=== PATIENT | male | born 1995 | race Hispanic/Latino ===

== ENCOUNTER 2019-01-31 09:56 | Emergency (ER) | payer BC, OTHER ==
[2019-01-31] MEDS ORDERED: NA CHLORIDE 0.9% 1,000 ML ONE (10:18)
[2019-01-31] MEDS ORDERED: ONDANSETRON 4 MG/2 ML VIAL ONE (10:18)
[2019-01-31] MEDS ORDERED: FENTANYL CITR 100 MCG/2 ML ONE (10:18)
[2019-01-31] MEDS ORDERED: PROMETHAZINE 25 MG/ML VIAL ONE (10:45)
[2019-01-31 10:53] LABS: Absolute Lymphocytes (CBC) 3.6 K/uL (0.7-4.9); Basophils % 0.4 % (0-1.3); Hematocrit 42.9 % (39.6-49.0); Lymphocytes % 28.8 % (15.3-44.8); MPV 8.2 fL (7.6-11.3); RBC Red Blood Cell Count 4.71 M/uL (4.33-5.43)
--- NOTE | 2019-01-31 10:57 | RAD REPORT ---
EXAM DESCRIPTION: CT - Stone Protocol - 01/31/2019 10:28 am CLINICAL HISTORY: Flank pain. FLANK PAIN COMPARISON: No comparisons TECHNIQUE: Axial images were obtained without oral or IV contrast. Lack of contrast limits solid org an and vascular assessment. The [id number] spans the entirety of the system partially obscuring uppermost abdomen and lung bases. Coronal reformatted images were obtained and reviewed. All CT scans are performed using dose optimization technique as appropriate and may include automated exposure control or mA/KV adjustment according to patient size. FINDINGS: The lower lung mcmillan are clear. Imaged portions of the liver and spleen show no suspicious findings on non-contrast imaging. The panc reas and adrenal glands are normal. No pathologic lymphadenopathy in the abdomen or pelvis. There is mild right-sided hydronephrosis and hydroureter. No radiopaque calculus seen. Punctate calcu nelida is seen inferior calyx left kidney. No bowel obstruction, free air, free fluid or abscess. Normal appendix noted. No significant bony abnormality. IMPRESSION: Mild right hydronephrosis and hydroureter is seen without a radiopaque calculus noted. T his could indicate recent stone passage or due to a non-radiopaque calculus.
[2019-01-31 11:04] LABS: Albumin 3.8 g/dL (3.4-5.0); Bilirubin Direct 0.1 mg/dL (0-0.2); Bilirubin Total 0.4 mg/dL (0.2-1.0); Potassium 3.7 mmol/L (3.5-5.1); Protein, Total 7.5 g/dL (6.4-8.2)
--- NOTE | 2019-01-31 11:19 | ER ---
Nurse's Notes [facility] Name: Jasper Novak Age: 23 yrs Sex: Male : 1995 Arrival Date: 01/31/2019 Time: 09:58 Bed 20 Private MD: Jose De Jesus Roach T Diagnosis: Unspecified hydronephrosis;Right Flank Pain Presentation: 01/31 10:00 Presenting complaint: Patient states: SUDDEN ONSET R FLANK PAIN WITH NAUSEA AND bp VOMITING. Transition of care: patient was not received from another setting of care. Onset of symptoms was January 31, 2019. Risk Assessment: Do you want to hurt yourself or someone else? Patient reports no desire to harm self or others. Initial Sepsis Screen: Does the patient meet any 2 criteria? No. Patient's initial sepsis screen is negative. Does the patient have a suspected source of infection? No. Patient's initial sepsis screen is negative. Care prior to arrival: None. 10:00 Method Of Arrival: Ambulatory bp 10:00 Acuity: RASHEED 3 bp Triage Assessment: 10:00 General: Appears distressed, uncomfortable, obese, Behavior is cooperative, appropriate bp for age, anxious. Pain: Complains of pain in right flank. EENT: No deficits noted. Neuro: No deficits noted. Cardiovascular: No deficits noted. Respiratory: No deficits noted. GI: Abdomen is non-distended. : Reports pain in right flank(s). Derm: No deficits noted. Musculoskeletal: No deficits noted. Historical: - Allergies: 10:13 No Known Allergies; bp - Home Meds: 10:13 None [Active]; bp - PMHx: 10:13 None; bp - PSHx: 10:13 None; bp - Immunization history:: Adult Immunizations up to date. - Social history:: Smoking status: Patient/guardian denies using tobacco. - Ebola Screening: : No symptoms or risks identified at this time. Screenin:00 Abuse screen: Denies threats or abuse. Denies injuries from another. Nutritional bp screening: No deficits noted. Tuberculosis screening: No symptoms or risk factors identified. Fall Risk None identified. Assessment: 10:00 General: SEE TRIAGE NOTE. bp 10:20 Reassessment: PT TO CT. bp 11:34 Reassessment: PT D/C HOME AMBULATORY WITH FAMILY, DX WITH RIGHT HYDRONEPHROSIS. bp Vital Signs: 10:00 BP 137 / 74; Pulse 60; Resp 18; Temp 97.9; Pulse Ox 100% ; Weight 99.79 kg; Height 5 bp ft. 10 in. (177.80 cm); 11:01 BP 121 / 72; Pulse 45; Resp 14; Pulse Ox 100% ; bp 10:00 Body Mass Index 31.57 (99.79 kg, 177.80 cm) bp ED Course: 09:58 Patient arrived in ED. mr 09:58 Jose De Jesus Roach MD is Private Physician. mr 09:59 [facility] Swenson [facility]C [facility] kb 09:59 Josiah Green MD is Attending Physician. kb 10:00 Arm band placed on. bp 10:00 Patient has correct armband on for positive identification. Bed in low position. Call bp light in reach. Side rails up X2. Adult w/ patient. 10:01 Claudy Moore, RN is Primary Nurse. bp 10:10 Inserted saline lock: 18 gauge in right antecubital area, using aseptic technique. bp Blood collected. 10:12 Triage completed. bp 10:22 CT Stone Protocol Sent. bp 10:24 CT completed. Patient tolerated procedure well. Patient moved back from CT. bq 10:29 CT Stone Protocol In Process Unspecified. EDMS 10:43 Lab(s) recollected, by me, sent to lab. jb1 11:17 Kemi Mcallister MD is Referral Physician. kb 11:35 No provider procedures requiring assistance completed. IV discontinued, intact, bp bleeding controlled, No redness/swelling at site. Pressure dressing applied. Administered Medications: 10:15 Drug: NS 0.9% 1000 ml Route: IV; Rate: 1000 ml; Site: right antecubital; bp 11:36 Follow up: IV Status: Completed infusion; IV Intake: 1000ml bp 10:15 Drug: Zofran 4 mg Route: IVP; Site: right antecubital; bp 10:25 Follow up: Response: Nausea is decreased bp 10:15 Drug: fentaNYL (PF) 50 mcg Route: IVP; Site: right antecubital; bp 10:26 Follow up: Response: Pain is decreased bp 10:51 Drug: Phenergan 12.5 mg Route: IVP; Site: right antecubital; bp 11:36 Follow up: Response: Nausea is decreased bp 10:52 Drug: fentaNYL (PF) 50 mcg Route: IVP; Site: right antecubital; bp 11:36 Follow up: Response: Pain is decreased bp Intake: 11:36 IV: 1000ml; Total: 1000ml. bp Outcome: 11:18 Discharge ordered by . kb 11:35 Discharged to home ambulatory, with family. bp 11:35 Condition: stable 11:35 Discharge instructions given to patient, family, Instructed on discharge instructions, follow up and referral plans. Demonstrated understanding of instructions, follow-up care, medications, Prescriptions given X 2. 11:37 Patient left the ED. bp Signatures: Dispatcher [employer] EDMS Cr Gallegos jb1 Elo Swenson, [employer]ER-C [employer]-Marilee Lester, Claudy Ba, RN RN bp Shani Smith kw1 Corrections: (The following items were deleted from the chart) 10:13 10:13 Radiology exam delayed due to test not completed at this time. kw1 kw1
--- NOTE | 2019-01-31 11:19 | EDPHYS ---
Physician Documentation [facility] Name: Jasper Novak Age: 23 yrs Sex: Male : 1995 Arrival Date: 01/31/2019 Time: 09:58 Bed 20 Private MD: Jose De Jesus Roach T ED Physician Josiah Green HPI: 01/31 11:16 This 23 yrs old Male presents to ER via Ambulatory with complaints of kb Abdominal Pain, Vomiting. 11:16 The patient complains of pain in the right flank. The pain does not radiate. Onset: The kb symptoms/episode began/occurred this morning. Modifying factors: The symptoms are alleviated by nothing. the symptoms are aggravated by palpation/percussion. Associated signs and symptoms: Pertinent positives: nausea, vomiting, Pertinent negatives: diarrhea, dizziness, dysuria, fever, urinary frequency, headache, hematuria, pain radiating to the lower extremities. Severity of pain: At its worst the pain was moderate in the emergency department the pain is unchanged. The patient has not experienced similar symptoms in the past. The patient has not recently seen a physician. 11:17 sudden onset of right flank pain, nausea and vomiting that started this morning. kb Historical: - Allergies: 10:13 No Known Allergies; bp - Home Meds: 10:13 None [Active]; bp - PMHx: 10:13 None; bp - PSHx: 10:13 None; bp - Immunization history:: Adult Immunizations up to date. - Social history:: Smoking status: Patient/guardian denies using tobacco. - Ebola Screening: : No symptoms or risks identified at this time. ROS: 11:14 Constitutional: Negative for fever, chills, and weight loss, ENT: Negative for injury, kb pain, and discharge, Neck: Negative for injury, pain, and swelling, Cardiovascular: Negative for chest pain, palpitations, and edema, Respiratory: Negative for shortness of breath, cough, wheezing, and pleuritic chest pain, : Negative for injury, bleeding, discharge, and swelling, MS/Extremity: Negative for injury and deformity, Skin: Negative for injury, rash, and discoloration, Neuro: Negative for headache, weakness, numbness, tingling, and seizure. 11:14 Abdomen/GI: Positive for nausea and vomiting. 11:14 Back: Positive for flank pain, on the right. Exam: 11:14 Constitutional: This is a well developed, well nourished patient who is awake, alert, kb and in no acute distress. Head/Face: Normocephalic, atraumatic. Neck: Trachea midline, no thyromegaly or masses palpated, and no cervical lymphadenopathy. Supple, full range of motion without nuchal rigidity, or vertebral point tenderness. No Meningismus. Chest/axilla: Normal chest wall appearance and motion. Nontender with no deformity. No lesions are appreciated. Cardiovascular: Regular rate and rhythm with a normal S1 and S2. No gallops, murmurs, or rubs. Normal PMI, no JVD. No pulse deficits. Respiratory: Lungs have equal breath sounds bilaterally, clear to auscultation and percussion. No rales, rhonchi or wheezes noted. No increased work of breathing, no retractions or nasal flaring. Abdomen/GI: Soft, non-tender, with normal bowel sounds. No distension or tympany. No guarding or rebound. No evidence of tenderness throughout. Skin: Warm, dry with normal turgor. Normal color with no rashes, no lesions, and no evidence of cellulitis. MS/ Extremity: Pulses equal, no cyanosis. Neurovascular intact. Full, normal range of motion. Neuro: Awake and alert, GCS 15, oriented to person, place, time, and situation. Cranial nerves II-XII grossly intact. Motor strength 5/5 in all extremities. Sensory grossly intact. Cerebellar exam normal. Normal gait. 11:14 Back: CVA tenderness, that is moderate, is noted on the right. Vital Signs: 10:00 BP 137 / 74; Pulse 60; Resp 18; Temp 97.9; Pulse Ox 100% ; Weight 99.79 kg; Height 5 bp ft. 10 in. (177.80 cm); 11:01 BP 121 / 72; Pulse 45; Resp 14; Pulse Ox 100% ; bp 10:00 Body Mass Index 31.57 (99.79 kg, 177.80 cm) bp MDM: 10:01 Patient medically screened. kb 11:13 Data reviewed: vital signs, nurses notes. Data interpreted: Pulse oximetry: on room air kb is 100 %. Interpretation: normal. Counseling: I had a detailed discussion with the patient and/or guardian regarding: the historical points, exam findings, and any diagnostic results supporting the discharge/admit diagnosis, lab results, radiology results, the need for outpatient follow up, a family practitioner, a urologist, to return to the emergency department if symptoms worsen or persist or if there are any questions or concerns that arise at home. 11:15 ED course: Pt resting comfortably on stretcher after treatment. Educated on results and kb to follow up with Dr Mcallister if symptoms do not improve. 01/31 10:10 Order name: Basic Metabolic Panel; Complete Time: 11:10 kb 01/31 10:10 Order name: CBC with Diff; Complete Time: 11:10 kb 01/31 10:10 Order name: Hepatic Function; Complete Time: 11:10 kb 01/31 10:10 Order name: Lipase; Complete Time: 11:10 kb 01/31 10:10 Order name: CT Stone Protocol; Complete Time: 11:10 kb 01/31 10:10 Order name: IV Saline Lock; Complete Time: 10:11 kb 01/31 10:10 Order name: Labs collected and sent; Complete Time: 10:11 kb Administered Medications: 10:15 Drug: NS 0.9% 1000 ml Route: IV; Rate: 1000 ml; Site: right antecubital; bp 11:36 Follow up: IV Status: Completed infusion; IV Intake: 1000ml bp 10:15 Drug: Zofran 4 mg Route: IVP; Site: right antecubital; bp 10:25 Follow up: Response: Nausea is decreased bp 10:15 Drug: fentaNYL (PF) 50 mcg Route: IVP; Site: right antecubital; bp 10:26 Follow up: Response: Pain is decreased bp 10:51 Drug: Phenergan 12.5 mg Route: IVP; Site: right antecubital; bp 11:36 Follow up: Response: Nausea is decreased bp 10:52 Drug: fentaNYL (PF) 50 mcg Route: IVP; Site: right antecubital; bp 11:36 Follow up: Response: Pain is decreased bp Disposition: 13:52 Co-signature as Attending Physician, Josiah Green MD. rn Disposition: 01/31/19 11:18 Discharged to Home. Impression: Unspecified hydronephrosis, Right Flank Pain. - Condition is Stable. - Discharge Instructions: Kidney Stones, [id number], Hydronephrosis. - Prescriptions for Zofran 4 mg Oral Tablet - take 1 tablet by ORAL route every 6 hours As needed; 20 tablet. Diclofenac Sodium 75 mg Oral Tablet, Delayed Release (E.C.) - take 1 tablet by ORAL route 2 times per day As needed; 30 tablet. - Medication Reconciliation Form, Thank You Letter, Antibiotic Education, Prescription Opioid Use form. - Follow up: Emergency Department; When: As needed; Reason: Worsening of condition. Follow up: Private Physician; When: 2 - 3 days; Reason: Recheck today's complaints, Continuance of care, Re-evaluation by your physician. Follow up: Kemi Mcallister MD; When: 2 - 3 days; Reason: Recheck today's complaints. Signatures: Dispatcher [employer] EDMS Elo Swenson, IMMIGRATION PARALEGAL-C IMMIGRATION PARALEGAL-Josiah Wright MD MD rn Claudy Moore RN RN bp Corrections: (The following items were deleted from the chart) 11:37 11:18 01/31/2019 11:18 Discharged to Home. Impression: Unspecified hydronephrosis; bp Right Flank Pain. Condition is Stable. Forms are Medication Reconciliation Form, Thank You Letter, Antibiotic Education, Prescription Opioid Use. Follow up: Emergency Department; When: As needed; Reason: Worsening of condition. Follow up: Private Physician; When: 2 - 3 days; Reason: Recheck today's complaints, Continuance of care, Re-evaluation by your physician. Follow up: Kemi Mcallister; When: 2 - 3 days; Reason: Recheck today's complaints. kb
[2019-01-31 11:47] VITALS: TEMP 97.9; O2SAT 100
[2019-01-31 11:48] VITALS: BP 121/72
== END 2019-01-31 11:37 | disposition home or self-care (01) ==
LOC: ER 09:56
DX: N13.30 Unspecified hydronephrosis (principal)
CPT/HCPCS: 96361; 85025; 80048; 36415; 80076; 83690; 76377; 74176; 96375; 96374; 99284; J2550; J3010; J7030; J2405

== ENCOUNTER 2021-01-29 20:39 | Emergency (ER) | payer BC, SELFPAY ==
[2021-01-29] MEDS ORDERED: PHENYLEPHRINE 0.5% NOSE 15ML NAS ONE (21:26)
--- NOTE | 2021-01-30 12:05 | ER ---
Nurse's Notes [facility] Name: Jasper Novak Age: 25 yrs Sex: Male : 1995 Arrival Date: 01/29/2021 Time: 20:42 Bed 7 Private MD: Diagnosis: Epistaxis Presentation: 01/29 20:51 Chief complaint: Patient states: intermittent nose bleed since yesterday. Coronavirus sj1 screen: Vaccine status: Patient reports being unvaccinated. Ebola Screen: No symptoms or risks identified at this time. Initial Sepsis Screen: Does the patient meet any 2 criteria? No. Patient's initial sepsis screen is negative. Does the patient have a suspected source of infection? No. Patient's initial sepsis screen is negative. Risk Assessment: Do you want to hurt yourself or someone else? Patient reports no desire to harm self or others. Onset of symptoms was January 28, 2021. 20:51 Method Of Arrival: Ambulatory sj1 20:51 Acuity: RASHEED 3 sj1 21:12 Note Gauze soaked in Dangelo-Synephrine placed in left nare with nose clips. Pt tolerated df1 well. Triage Assessment: 20:52 General: Appears in no apparent distress. Behavior is calm, cooperative, appropriate sj1 for age. Pain: Denies pain. EENT: Nares with bleeding noted on left. Historical: - Allergies: 20:52 No Known Allergies; sj1 - Home Meds: 20:52 None [Active]; sj1 - PMHx: 20:52 None; sj1 - PSHx: 20:52 Elbow; sj1 - Immunization history:: Client reports having NOT received the Covid vaccine. - Social history:: Smoking status: Patient denies any tobacco usage or history of. Patient uses street drugs, marijuana, Patient/guardian denies using alcohol. Screenin:53 Abuse screen: Denies threats or abuse. Denies injuries from another. Nutritional sj1 screening: No deficits noted. Tuberculosis screening: No symptoms or risk factors identified. Fall Risk None identified. Assessment: 21:10 Pain: Denies pain. Neuro: No deficits noted. Cardiovascular: No deficits noted. df1 Respiratory: Airway is patent Respiratory effort is even, unlabored, Respiratory pattern is regular, symmetrical, Breath sounds are clear bilaterally. GI: No deficits noted. : No deficits noted. EENT: Nares with bleeding noted Reports intermittent bleeding from left nare x 1 day.. Musculoskeletal: No deficits noted. Vital Signs: 20:51 BP 119 / 83; Pulse 86; Resp 18 S; Temp 98.3; Pulse Ox 97% on R/A; Weight 102.06 kg (R); sj1 Height 5 ft. 10 in. (177.80 cm) (R); Pain 0/10; 22:03 BP 115 / 80; Pulse 82; Resp 15; Temp 98.6; Pulse Ox 100% ; Pain 0/10; bs2 20:51 Body Mass Index 32.28 (102.06 kg, 177.80 cm) sj1 ED Course: 20:42 Patient arrived in ED. bp1 20:44 Av Skaggs PA is PHCP. jmm 20:44 Shay Bell MD is Attending Physician. m 20:52 Triage completed. sj1 20:53 Patient has correct armband on for positive identification. sj1 20:54 Arm band placed on. sj1 20:59 Rosalie Humphreys, RN is Primary Nurse. bs2 21:09 No provider procedures requiring assistance completed. Patient did not have IV access df1 during this emergency room visit. 21:54 Isela Grove MD is Referral Physician. [facility] Administered Medications: No medications were administered Outcome: 21:54 Discharge ordered by . [facility] 22:02 Discharged to home ambulatory, with family. bs2 22:02 Condition: improved 22:02 Discharge instructions given to patient, family, Instructed on discharge instructions, follow up and referral plans. Demonstrated understanding of instructions, follow-up care. 22:03 Patient left the ED. bs2 Signatures: Av Skaggs PA PA jmMelanie Yip bp1 Rosalie Humphreys, RN RN bs2 Marlen Sanabria df1 Reshma Cheney RN RN sj1
--- NOTE | 2021-01-30 12:05 | EDPHYS ---
Physician Documentation [facility] Name: Jasper Novak Age: 25 yrs Sex: Male : 1995 Arrival Date: 01/29/2021 Time: 20:42 Bed 7 Private MD: FLO Physician Shay Bell HPI: 01/29 21:52 This 25 yrs old Male presents to ER via Ambulatory with complaints of Nose jmm Bleed. 21:52 The patient presents with a nose bleed, that is apparently anterior, from the left jmm nare. Onset: The symptoms/episode began/occurred gradually, 1 day(s) ago. Modifying factors: The symptoms are alleviated by nothing. the symptoms are aggravated by nothing. Associated signs and symptoms: Loss of consciousness: the patient experienced no loss of consciousness, Pertinent negatives: fever, shortness of breath, sore throat. Historical: - Allergies: 20:52 No Known Allergies; sj1 - Home Meds: 20:52 None [Active]; sj1 - PMHx: 20:52 None; sj1 - PSHx: 20:52 Elbow; sj1 - Immunization history:: Client reports having NOT received the Covid vaccine. - Social history:: Smoking status: Patient denies any tobacco usage or history of. Patient uses street drugs, marijuana, Patient/guardian denies using alcohol. ROS: 21:52 Constitutional: Negative for fever, chills, and weight loss. jmm 21:52 ENT: Positive for nose bleed. 21:52 All other systems are negative. Exam: 21:52 Constitutional: This is a well developed, well nourished patient who is awake, alert, jmm and in no acute distress. Head/Face: atraumatic. Eyes: EOMI, no conjunctival erythema appreciated 21:52 Neck: Trachea midline, Supple Chest/axilla: Normal chest wall appearance and motion. Cardiovascular: Regular rate and rhythm. No edema appreciated Respiratory: Normal respirations, no respiratory distress appreciated Abdomen/GI: Non distended, soft Back: Normal ROM Skin: General appearance color normal MS/ Extremity: Moves all extremities, no obvious deformities appreciated, no edema noted to the lower extremities Neuro: Awake and alert, normal gait Psych: Behavior is normal, Mood is normal, Patient is cooperative and pleasant 21:52 ENT: Nose: bleeding, is seen from the left nare, and is minimal. Vital Signs: 20:51 BP 119 / 83; Pulse 86; Resp 18 S; Temp 98.3; Pulse Ox 97% on R/A; Weight 102.06 kg (R); sj1 Height 5 ft. 10 in. (177.80 cm) (R); Pain 0/10; 22:03 BP 115 / 80; Pulse 82; Resp 15; Temp 98.6; Pulse Ox 100% ; Pain 0/10; bs2 20:51 Body Mass Index 32.28 (102.06 kg, 177.80 cm) sj1 MDM: 20:56 Patient medically screened. [facility] 21:53 Data reviewed: vital signs, nurses notes. Counseling: I had a detailed discussion with faizan the patient and/or guardian regarding: the historical points, exam findings, and any diagnostic results supporting the discharge/admit diagnosis, the need for outpatient follow up, to return to the emergency department if symptoms worsen or persist or if there are any questions or concerns that arise at home. ED course: Bleeding resolved in the ED with neosynephrine spray and pressure. Patient given strict return precautions. Patient understood and agrees with the plan of care. . Administered Medications: No medications were administered Disposition: 01/30 08:45 Co-signature as Attending Physician, Shay Bell MD I agree with the assessment and [facility] plan of care. Disposition Summary: 01/29/21 21:54 Discharge Ordered Location: Home [facility] Condition: Stable [facility] Diagnosis - Epistaxis [facility] Followup: [facility] - With: Isela Grove MD - When: 2 - 3 days - Reason: Recheck today's complaints, Continuance of care, Re-evaluation by your physician Discharge Instructions: - Discharge Summary Sheet [facility] - Nosebleed, Adult [facility] Forms: - Medication Reconciliation Form [facility] - Thank You Letter [facility] - Antibiotic Education [facility] - Prescription Opioid Use [facility] Signatures: Shay Bell MD MD cha Mickail, Joel, PA PA jmm Johnson, Sade, RN RN sj1
[2021-01-30 12:16] VITALS: BP 115/80; TEMP 98.6; O2SAT 100
== END 2021-01-29 22:03 | disposition home or self-care (01) ==
LOC: ER 20:39
DX: R04.0 Epistaxis (principal)
CPT/HCPCS: 99281

== ENCOUNTER 2022-09-25 21:38 | Emergency (ER) | payer SELFPAY ==
[2022-09-25 22:12] LABS: Absolute Lymphocytes (CBC) 3.9 K/uL (0.7-4.9); Hematocrit 43.5 % (39.6-49.0); Lymphocytes % 31.7 % (15.3-44.8); MCV 91.9 fL (80-100); MPV 7.6 fL (7.6-11.3); RBC Red Blood Cell Count 4.74 M/uL (4.33-5.43)
[2022-09-25] MEDS ORDERED: MORPHINE 4 MG/ML SYR ONE (22:16)
[2022-09-25] MEDS ORDERED: NA CHLORIDE 0.9% 1,000 ML ONE (22:16)
[2022-09-25] MEDS ORDERED: KETOROLAC 30 MG/ML INJ ONE (22:16)
[2022-09-25] MEDS ORDERED: ONDANSETRON 4 MG/2 ML VIAL ONE (22:16)
[2022-09-25 22:20] LABS: Protime INR 1.25
[2022-09-25 22:31] LABS: Albumin 4.2 g/dL (3.4-5.0); Bilirubin Direct 0.2 mg/dL (0-0.2); Bilirubin Indirect, Calculated 0.6 mg/dL (0.2-0.8); Bilirubin Total 0.8 mg/dL (0.2-1.0); Magnesium 2.3 mg/dL (1.6-2.4); Potassium 3.3 mEq/L (3.5-5.1); Protein, Total 8.3 g/dL (6.4-8.2); Troponin High Sensitivity 5.4 pg/mL (<58.9)
--- NOTE | 2022-09-26 01:59 | ER ---
Nurse's Notes [facility] Name: Jasper Novak Age: 26 yrs Sex: Male : 1995 Arrival Date: 09/25/2022 Time: 21:38 Bed 3 Private MD: Diagnosis: Syncope and collapse, atypical chest pain Presentation: 09/25 22:02 Chief complaint: Patient states: on Friday i was arguing with my and i passed out. lg3 when i came to, i was on the floor on my left side and now i have pain in my left shoulder, left chest and left flank. Coronavirus screen: Client denies travel out of the [place] in the last 14 days. At this time, the client does not indicate any symptoms associated with coronavirus-19. Ebola Screen: No symptoms or risks identified at this time. Initial Sepsis Screen: Does the patient meet any 2 criteria? No. Patient's initial sepsis screen is negative. Does the patient have a suspected source of infection? No. Patient's initial sepsis screen is negative. Risk Assessment: Do you want to hurt yourself or someone else? Patient reports no desire to harm self or others. Onset of symptoms was September 22, 2022. 22:02 Method Of Arrival: Ambulatory lg3 22:02 Acuity: RASHEED 3 lg3 Triage Assessment: 22:06 General: Appears in no apparent distress. comfortable, Behavior is calm, cooperative. lg3 Pain: Complains of pain in left shoulder, left chest, left flank. EENT: No deficits noted. No signs and/or symptoms were reported regarding the EENT system. Neuro: No deficits noted. [place] Agitation-Sedation Scale (RASS): 0 - Alert and Calm Level of Consciousness is awake, alert, obeys commands, Oriented to person, place, time, situation. Cardiovascular: No deficits noted. Respiratory: Reports Airway is patent Respiratory effort is even, unlabored, Respiratory pattern is regular, symmetrical. GI: No deficits noted. No signs and/or symptoms were reported involving the gastrointestinal system. : No deficits noted. No signs and/or symptoms were reported regarding the genitourinary system. Derm: No deficits noted. No signs and/or symptoms reported regarding the dermatologic system. Skin is intact, is healthy with good turgor, Skin is dry, Skin is normal, Skin temperature is warm. Musculoskeletal: No deficits noted. Circulation, motion, and sensation intact. Range of motion: intact in all extremities. Historical: - Allergies: 22:06 No Known Allergies; lg3 - Home Meds: 22:06 None [Active]; lg3 - PMHx: 22:06 None; lg3 - PSHx: 22:06 Elbow; lg3 - Immunization history:: Adult Immunizations up to date, Client reports having NOT received the Covid vaccine. - Social history:: Smoking status: Patient denies any tobacco usage or history of. Patient uses street drugs, marijuana, Patient/guardian denies using alcohol. - Family history:: not pertinent. Screenin:00 [facility] ED Fall Risk Assessment (Adult) History of falling in the last 3 months, rv including since admission No falls in past 3 months (0 pts) Confusion or Disorientation No (0 pts) Intoxicated or Sedated No (0 pts) Impaired Gait No (0 pts) Mobility Assist Device Used No (0 pt) Altered Elimination No (0 pt) Score/Fall Risk Level 0 - 2 = Low Risk Oriented to surroundings, Maintained a safe environment, Educated pt \T\ family on fall prevention, incl call for assistance when getting out of bed, Assessed \T\ reinforced patient's understanding of fall precautions, Provided non-skid footwear, Hourly rounding (assess needs \T\ fall precautionary measures) done, Used ambulatory aids as needed (educated on \T\ assisted with), Used gait belt as appropriate. 23:00 Abuse screen: Denies threats or abuse. Denies injuries from another. Nutritional rv screening: No deficits noted. Tuberculosis screening: No symptoms or risk factors identified. Assessment: 23:00 General: Appears uncomfortable, Behavior is calm, cooperative. rv 23:00 Pain: Complains of pain in chest Pain does not radiate. Pain began suddenly. Neuro: rv Level of Consciousness is awake, alert, obeys commands, Oriented to person, place, time, situation. Cardiovascular: Capillary refill < 3 seconds. Respiratory: Airway is patent. Vital Signs: 22:02 BP 134 / 93; Pulse 66; Resp 17 S; Temp 99.5(O); Pulse Ox 100% on R/A; Weight 99.79 kg lg3 (R); Height 5 ft. 10 in. (R); Pain 5/10; 23:30 BP 139 / 70; Pulse 71; Resp 17; Pulse Ox 100% ; rv 09/26 00:43 BP 100 / 68; Pulse 68; Resp 16; Pulse Ox 100% on R/A; rv 01:30 BP 126 / 78; Pulse 65; Resp 17; Pulse Ox 99% ; Pain 0/10; jj7 02:13 BP 126 / 85; Pulse 80; Resp 19; Pulse Ox 98% ; jj7 09/25 22:02 Body Mass Index 31.57 (99.79 kg, 177.8 cm) lg3 09/25 22:02 Pain Scale: Adult lg3 01:30 Pain Scale: Adult jj7 ED Course: 09/25 21:41 Patient arrived in ED. ag3 21:46 Justyn Ward MD is Attending Physician. sp4 22:02 Tushar Cheney RN is Primary Nurse. jj7 22:06 Triage completed. lg3 22:06 Arm band placed on right wrist. lg3 22:10 Inserted saline lock: 20 gauge in left antecubital area, using aseptic technique. Blood jj7 collected. 23:00 Patient has correct armband on for positive identification. Client placed on continuous rv cardiac and pulse oximetry monitoring. NIBP monitoring applied. night monitor on. 23:25 CT Aorta for Dissection In Process Unspecified. EDMS 23:30 Patient maintains SpO2 saturation greater than 95% on room air. jj7 09/26 01:57 Wiliam Hill MD is Referral Physician. sp4 02:13 No provider procedures requiring assistance completed. IV discontinued, intact, jj7 bleeding controlled, No redness/swelling at site. Pressure dressing applied. Administered Medications: 09/25 22:19 Drug: Ketorolac IVP 30 mg Route: IVP; Site: left antecubital; rv 09/26 02:11 Follow up: Response: Marked relief of symptoms jj7 09/25 22:19 Drug: NS 0.9% IV 1000 ml Route: IV; Rate: 1 bolus; Site: left antecubital; rv 23:17 Follow up: IV Status: Completed infusion jj7 09/26 02:11 Not Given (PT STATES SID HELPED WITH PAINn): morphine IVP or IV 4 mg IVP once over 4 jj7 mins 02:11 Not Given (NO NAUSEAa): Ondansetron IVP 4 mg IVP once; over 2 minutes jj7 Medication: 00:43 VIS not applicable for this client. rv Outcome: 01:58 Discharge ordered by . sp4 02:13 Discharged to home ambulatory, with significant other. jj7 02:13 Condition: improved 02:13 Discharge instructions given to patient, Instructed on discharge instructions, follow up and referral plans. Demonstrated understanding of instructions, follow-up care. 02:14 Patient left the ED. jj7 Signatures: Dispatcher [employer] EDMS Larry Allison, RN RN rv Smita Villarreal3 Annemarie Ashby RN RN lg3 Tushar Cheney RN RN jj7 Justyn Ward MD MD sp4 Corrections: (The following items were deleted from the chart) 02:16 06/ 23:15 Inserted saline lock: 20 gauge in left antecubital area, using aseptic jj7 technique. Blood collected. jj7
--- NOTE | 2022-09-26 01:59 | EDPHYS ---
Physician Documentation [facility] Name: Jasper Novak Age: 26 yrs Sex: Male : 1995 Arrival Date: 09/25/2022 Time: 21:38 Bed 3 Private MD: ED Physician Justyn Ward HPI: 09/25 21:46 This 26 yrs old Male presents to ER via Unassigned with complaints of Chest sp4 Pain, Shoulder Pain, Fall Injury. 22:02 26-year-old male presents with complaint of syncopal episode on Friday 4 days ago sp4 associated with fall on the floor, and now there is a persistent left-sided chest pain associated with radiation into the neck.. 09/26 01:53 Patient states that this is his third episode of syncope at home under similar sp4 circumstances specifically with a trip to the bathroom. Historical: - Allergies: 09/25 22:06 No Known Allergies; lg3 - Home Meds: 22:06 None [Active]; lg3 - PMHx: 22:06 None; lg3 - PSHx: 22:06 Elbow; lg3 - Immunization history:: Adult Immunizations up to date, Client reports having NOT received the Covid vaccine. - Social history:: Smoking status: Patient denies any tobacco usage or history of. Patient uses street drugs, marijuana, Patient/guardian denies using alcohol. - Family history:: not pertinent. ROS: 09/26 01:53 Constitutional: Negative for fever, chills, and weight loss, positive for syncope at sp4 home, positive for left-sided chest pain. Eyes: Negative for injury, pain, redness, and discharge, ENT: Negative for injury, pain, and discharge, Neck: Negative for injury, pain, and swelling, Cardiovascular: Negative for palpitations, and edema, positive for chest pain Respiratory: Negative for shortness of breath, cough, wheezing, and pleuritic chest pain, Abdomen/GI: Negative for abdominal pain, nausea, vomiting, diarrhea, and constipation, Back: Negative for injury and pain, : Negative for injury, bleeding, discharge, and swelling, MS/Extremity: Negative for injury and deformity, Skin: Negative for injury, rash, and discoloration, Neuro: Negative for headache, weakness, numbness, tingling, and seizure, Psych: Negative for depression, anxiety, Allergy/Immunology: Negative for hives, rash, and allergies Endocrine: Negative for neck swelling, polydipsia, polyuria, polyphagia, and weight changes Hematologic/Lymphatic: Negative for swollen nodes, abnormal bleeding, and unusual bruising Exam: 01:48 ECG was reviewed by the Attending Physician. EKG reveals sinus bradycardia at rate of sp4 58, EKG time 2214, otherwise EKG is normal, no ectopy 01:53 Constitutional: This is a well developed, well nourished patient who is awake, alert, sp4 and in no acute distress. Head/Face: Normocephalic, atraumatic. Eyes: Pupils equal round and reactive to light, extra-ocular motions intact. Lids and lashes normal. Conjunctiva and sclera are not injected. Cornea within normal limits. Periorbital areas with no swelling, redness, or edema. ENT: Nares patent. No nasal discharge, no septal abnormalities noted. Tympanic membranes are normal and external auditory canals are clear. Oropharynx with no redness, swelling, or masses, exudates, or evidence of obstruction, uvula midline. Mucous membranes moist. Neck: Trachea midline, no thyromegaly or masses palpated, and no cervical lymphadenopathy. Supple, full range of motion without nuchal rigidity, or vertebral point tenderness. Chest/axilla: Normal chest wall appearance and motion. Nontender with no deformity. No lesions are appreciated. Cardiovascular: Regular rate and rhythm with a normal S1 and S2. No gallops, murmurs, or rubs. Normal PMI, no JVD. No pulse deficits. Respiratory: Lungs have equal breath sounds bilaterally, clear to auscultation and percussion. No rales, rhonchi or wheezes noted. No increased work of breathing, no retractions or nasal flaring. Abdomen/GI: Soft, non-tender, with normal bowel sounds. No distension or tympany. No guarding or rebound. No evidence of tenderness throughout. Back: No spinal tenderness. No costovertebral tenderness. Skin: Warm, dry with normal turgor. Normal color with no rashes, no lesions, and no evidence of cellulitis. MS/ Extremity: Pulses equal, no cyanosis. Neurovascular intact. Full, normal range of motion. Neuro: Awake and alert, GCS 15, oriented to person, place, time, and situation. Cranial nerves II-XII grossly intact. Motor strength 5/5 in all extremities. Sensory grossly intact. Psych: Awake, alert, with orientation to person, place and time. Behavior, mood, and affect are within normal limits Vital Signs: 09/25 22:02 BP 134 / 93; Pulse 66; Resp 17 S; Temp 99.5(O); Pulse Ox 100% on R/A; Weight 99.79 kg lg3 (R); Height 5 ft. 10 in. (R); Pain 5/10; 23:30 BP 139 / 70; Pulse 71; Resp 17; Pulse Ox 100% ; rv 09/26 00:43 BP 100 / 68; Pulse 68; Resp 16; Pulse Ox 100% on R/A; rv 01:30 BP 126 / 78; Pulse 65; Resp 17; Pulse Ox 99% ; Pain 0/10; jj7 02:13 BP 126 / 85; Pulse 80; Resp 19; Pulse Ox 98% ; jj7 09/25 22:02 Body Mass Index 31.57 (99.79 kg, 177.8 cm) lg3 09/25 22:02 Pain Scale: Adult lg3 01:30 Pain Scale: Adult jj7 MDM: 09/25 21:51 Patient medically screened. sp4 09/26 01:48 ED course: CT report IMPRESSION 1. No aortic dissection. 2. No acute abnormality sp4 identified in the chest, abdomen, or pelvis. . 01:53 Differential diagnosis: acute pericarditis, chest wall pain, costochondritis, sp4 gastritis, pancreatitis, pericarditis, pleurisy. HEART Score: History: Slightly Suspicious (0), ECG: Normal (0), Age: < or = 45 years (0), Risk Factors: No Risk Factors Known (0), Troponin: < or = 1 x Normal Limit (0), Total Score = 0. Data reviewed: vital signs, nurses notes, old medical records, lab test result(s), EKG, radiologic studies, CT scan. ED course: Work-up today is unremarkable. Patient will be advised to see political worker on outpatient basis for additional work-up of syncope.. 09/25 22:00 Order name: Basic Metabolic Panel; Complete Time: 00:52 sp4 09/25 22:00 Order name: CBC with Diff; Complete Time: 00:52 4 09/25 22:00 Order name: LFT's; Complete Time: 00:52 4 09/25 22:00 Order name: Magnesium; Complete Time: 00:52 4 09/25 22:00 Order name: NT PRO-BNP; Complete Time: 00:52 4 09/25 22:00 Order name: PT-INR; Complete Time: 00:52 4 09/25 22:00 Order name: Troponin HS; Complete Time: 00:52 4 09/25 22:01 Order name: CT Aorta for Dissection 4 09/25 22:00 Order name: EKG; Complete Time: 22: 4 09/25 22:00 Order name: Cardiac monitoring; Complete Time: 22: 4 09/25 22:00 Order name: EKG - Nurse/Tech; Complete Time: 22: 4 09/25 22:00 Order name: IV Saline Lock; Complete Time: 22: 4 09/25 22:00 Order name: Labs collected and sent; Complete Time: 22: 4 09/25 22:00 Order name: O2 Per Protocol; Complete Time: 22: sp4 09/25 22:00 Order name: O2 Sat Monitoring; Complete Time: 22:4 EC:48 Rate is 58 beats/min. Rhythm is regular, Sinus bradycardia. QRS [place] is Normal. SC sp4 interval is normal. QRS interval is normal. QT interval is normal. T waves are Normal. No ST changes noted. Clinical impression: No evidence of ischemia. Interpreted by me. Administered Medications: 09/25 22:19 Drug: Ketorolac IVP 30 mg Route: IVP; Site: left antecubital; rv 09/26 02:11 Follow up: Response: Marked relief of symptoms j7 09/25 22:19 Drug: NS 0.9% IV 1000 ml Route: IV; Rate: 1 bolus; Site: left antecubital; rv 23:17 Follow up: IV Status: Completed infusion j7 09/26 02:11 Not Given (PT STATES SID HELPED WITH PAINn): morphine IVP or IV 4 mg IVP once over 4 jj7 mins 02:11 Not Given (NO NAUSEAa): Ondansetron IVP 4 mg IVP once; over 2 minutes jj7 Disposition Summary: 09/26/22 01:58 Discharge Ordered Location: Home sp4 Condition: Stable sp4 Problem: new sp4 Symptoms: have improved sp4 Diagnosis - Syncope and collapse, atypical chest pain sp4 Followup: sp4 - With: Wiliam Hill MD - When: 10 - 14 days - Reason: Recheck today's complaints Discharge Instructions: - Discharge Summary Sheet sp4 - Syncope, [id number] sp4 Forms: - Work release form jj7 Signatures: Dispatcher [employer] Larry Warren RN RN Annemarie Encinas RN RN lg3 Justyn Ward MD MD sp4 Tushar Cheney RN jj7
[2022-09-26 02:41] VITALS: TEMP 99.5
[2022-09-26 02:46] VITALS: BP 126/85; O2SAT 98
--- NOTE | 2022-09-26 13:44 | RAD REPORT ---
EXAM DESCRIPTION: CT - Angio Aorta For Dissection - 09/26/2022 5:53 am CLINICAL HISTORY: New onset chest pain. COMPARISON: CT of the abdomen and pelvis without contrast from January 31, 2019. TECHNIQUE: CTA of the chest, abdomen, and pelvis was performed following intravenous administration of iodinated contrast. Oral contrast was not administered. Axial, coronal, and sagittal reconstructio ns were created and sent to PACS. 3D reconstructions were created on an independent workstation and sent to PACS for evaluation. This exam was performed according to our departmental dose-optimization program, which includes autom ated exposure control, adjustment of the mA and/or kV according to patient size and/or use of iterati ve reconstruction technique. FINDINGS: Vascular: No evidence of aortic dissection. No aortic aneurysm. No evidence of pulmonary e mbolism. The celiac axis, SMA, and RACHANA are patent. Patent renal arteries, single on the right and tri plicate on the left. Lungs and pleura: No pulmonary consolidation. No pleural effusion. No pneumothorax. Mediastinum and neck: No mediastinal lymphadenopathy identified by CT size criteria. Unremarkable toño earance of the thyroid gland. Cardiac: No cardiomegaly or pericardial effusion. Hepatobiliary: No concerning hepatic lesion identified. The portal veins are patent. The gallbladder is unremarkable. No biliary ductal dilatation. Pancreas: Unremarkable. Spleen: Unremarkable. Gastrointestinal: No evidence of bowel obstruction or perienteric inflammation. The appendix is sarah l. Adrenals: No abnormality identified in either adrenal gland. Renal: No concerning parenchymal abnormality in either kidney. No hydronephrosis or urolithiasis. Bladder/Reproductive: Unremarkable appearance of the urinary bladder by CT technique. Lymphatics: No lymphadenopathy identified by CT size criteria. Musculoskeletal: No concerning osseous lesion identified. Fluid / peritoneum: No significant free fluid. No free intraperitoneal air identified. IMPRESSION 1. No aortic dissection. 2. No acute abnormality identified in the chest, abdomen, or pelvis. Electronically signed by: Hanny Quintana MD 09/26/2022 12:06 AM CDT Due to temporary technical issues with the PACS/Fluency reporting system, reports are being signed by the in house radiologists without review as a courtesy to insure prompt reporting. The interpreting radiologist is fully responsible for the content of the report.
--- NOTE | 2022-09-26 17:40 | EKG ---
Test Date: 2022-09-25 Test Time: 22:14:08 Generating Station Mechanic: RV MEASUREMENT RESULTS: Intervals: Rate: 58 PA: 140 QRSD: 96 QT: 388 QTc: 380 [place]: P: 30 PA: 140 QRS: 41 T: 47 INTERPRETIVE STATEMENTS: Sinus bradycardia Otherwise normal ECG No previous ECG available for comparison Electronically Signed On 09-26-22 17:39:20 CDT by Wiliam Hill
== END 2022-09-26 02:14 | disposition home or self-care (01) ==
LOC: ER 21:38
DX: R07.89 Other chest pain (principal)
CPT/HCPCS: 36415; 71275; 74175; 80048; 80076; 83735; 83880; 84484; 85025; 85610; 93005; 96361; 96374; 99285; J2405; J7030; Q9967

== ENCOUNTER 2023-02-16 07:10 | Emergency (ER) | payer SELFPAY ==
[2023-02-16] MEDS ORDERED: MORPHINE 4 MG/ML SYR ONE ×2 (07:44→08:50)
[2023-02-16] MEDS ORDERED: NA CHLORIDE 0.9% 1,000 ML ONE ×2 (07:45→10:06)
[2023-02-16] MEDS ORDERED: KETOROLAC 30 MG/ML INJ ONE (07:45)
[2023-02-16] MEDS ORDERED: ONDANSETRON 4 MG/2 ML VIAL ONE (07:45)
[2023-02-16 07:54] LABS: Absolute Lymphocytes (CBC) 3.2 K/uL (0.7-4.9); Hematocrit 43.3 % (39.6-49.0); Lymphocytes % 20.6 % (15.3-44.8); MCV 90.8 fL (80-100); MPV 7.4 fL (7.6-11.3); Platelets 305 thou/uL (152-406); RBC Red Blood Cell Count 4.77 M/uL (4.33-5.43)
--- NOTE | 2023-02-16 08:03 | RAD REPORT ---
EXAM DESCRIPTION: CT - Abdomen Pelvis Wo Contrast - 02/16/2023 7:47 am CLINICAL HISTORY: Abdominal pain COMPARISON: September 2022 TECHNIQUE: Computed axial tomography of the abdomen and pelvis was obtained. IV and oral contrast we re not requested. All CT scans are performed using dose optimization technique as appropriate and may include automated exposure control or mA/KV adjustment according to patient size. FINDINGS: The evaluation of solid organs, vessels and bowel is limited secondary to the lack of con trast administration. 3 millimeter calculus left kidney. Mild left hydronephrosis. 3 millimeter calculus distal left ureter . Right kidney grossly normal The liver, spleen, pancreas, and adrenals appear grossly normal. The appendix is normal. There is no evidence of diverticulitis. IMPRESSION: 3 millimeter calculus distal left ureter resulting in mild left hydronephrosis
[2023-02-16 08:06] LABS: Albumin 3.9 g/dL (3.4-5.0); Bilirubin Total 0.4 mg/dL (0.2-1.0); Potassium 3.9 mEq/L (3.5-5.1); Protein, Total 7.8 g/dL (6.4-8.2)
--- NOTE | 2023-02-16 10:25 | RAD REPORT ---
EXAM DESCRIPTION: US - Scrotum Testicles - 02/16/2023 8:02 am CLINICAL HISTORY: Testicular pain COMPARISON: None FINDINGS: Right testicle measures 4 x 2 x 3 centimeters. Echotexture is homogeneous. Normal blood fl ow Left testicle measures 4 x 2 x 3 centimeters. Echotexture is homogeneous. Normal blood flow Testicular microlithiasis bilaterally The epididymides are normal in size and echotexture. Normal blood flow is seen. 10 millimeter right spermatocele. 5 millimeter left spermatocele IMPRESSION: Testicular microlithiasis bilaterally can be associated with an increased risk of testic ular cancer. Yearly scrotal ultrasound recommended Bilateral spermatoceles
[2023-02-16 11:50] LABS: Specific Gravity 1.027 (1.005-1.030); Urine Bacteria <20 /HPF (<20); Urine Bilirubin NEGATIVE (Negative); Urine Blood 3+ (OVER) (Negative); Urine Clarity Extremely Turbid (Clear); Urine Color Light-Orange (Yellow); Urine Glucose NEGATIVE (Negative); Urine Mucus 3+ /HPF (None Seen); Urine Protein 1+ (Negative); Urine RBC >50 /HPF (None Seen); Urine Urobilinogen Normal (Normal); Urine pH 5.5 (5.0-7.0)
--- NOTE | 2023-02-16 12:02 | ER ---
Nurse's Notes [facility] Name: Jasper Novak Age: 27 yrs Sex: Male : 1995 Arrival Date: 02/16/2023 Time: 07:10 Bed 7 Private MD: Diagnosis: Ureteral Stone Presentation: 02/16 07:17 Ebola Screen: Patient denies travel to an Ebola-affected area in the 21 days before ll1 illness onset. Risk Assessment: Do you want to hurt yourself or someone else? Patient reports no desire to harm self or others. 07:17 Acuity: RASHEED 3 ll1 07:17 Method Of Arrival: Ambulatory ll1 07:25 Chief complaint: Patient states: Severe L sided scrotal area pain started while at work ll1 around 3 AM. N/V with severe pain and sweating. Coronavirus screen: Client denies travel out of the [place] in the last 14 days. At this time, the client does not indicate any symptoms associated with coronavirus-19. Initial Sepsis Screen: Does the patient meet any 2 criteria? No. Patient's initial sepsis screen is negative. Does the patient have a suspected source of infection? No. Patient's initial sepsis screen is negative. Onset of symptoms was February 16, 2023. Triage Assessment: 07:17 General: Appears uncomfortable, ill, Behavior is calm, cooperative, appropriate for ll1 age. Pain: Complains of pain in pelvis. GI: Reports nausea, vomiting. : Reports pain testicle. Historical: - Allergies: 07:24 No Known Allergies; ll1 - PMHx: 07:24 None; ll1 - PSHx: 07:17 Elbow; ll1 - Immunization history:: Adult Immunizations up to date. - Social history:: Smoking status: Patient denies any tobacco usage or history of. Screenin:00 [facility] ED Fall Risk Assessment (Adult) Score/Fall Risk Level 0 - 2 = Low Risk hb Oriented to surroundings, Maintained a safe environment. Abuse screen: Denies threats or abuse. Denies injuries from another. Nutritional screening: No deficits noted. Tuberculosis screening: No symptoms or risk factors identified. Assessment: 07:35 General: Appears in no apparent distress. uncomfortable, Behavior is cooperative, hb crying. Pain: Pain currently is 10 out of 10 on a pain scale. Neuro: Level of Consciousness is awake, alert, obeys commands, Oriented to person, place, time, situation. Cardiovascular: Patient's skin is warm and dry. Respiratory: Respiratory effort is even, unlabored, Respiratory pattern is regular, symmetrical. GI: Reports nausea, vomiting. : Reports severe left sided testicular pain that radiates to abdomwn. EENT: No signs and/or symptoms were reported regarding the EENT system. Derm: Skin is diaphoretic, Skin is normal, Skin temperature is warm. Musculoskeletal: No deficits noted. 08:48 Reassessment: Patient appears in no apparent distress at this time. Patient and/or hb family updated on plan of care and expected duration. Pain level reassessed. Patient is alert, oriented x 3, equal unlabored respirations, skin warm/dry/pink. 09:54 Reassessment: Patient appears in no apparent distress at this time. Patient and/or hb family updated on plan of care and expected duration. Pain level reassessed. Patient is alert, oriented x 3, equal unlabored respirations, skin warm/dry/pink. 10:48 Reassessment: Patient appears in no apparent distress at this time. Patient and/or hb family updated on plan of care and expected duration. Pain level reassessed. Patient is alert, oriented x 3, equal unlabored respirations, skin warm/dry/pink. Vital Signs: 07:25 BP 145 / 75; Pulse 62; Resp 16; Temp 97.8; Pulse Ox 100% ; Pain 10/10; ll1 08:30 BP 115 / 69; Pulse 62; Resp 15; Pulse Ox 99% on R/A; Pain 9/10; hb 09:54 BP 114 / 70; Pulse 85; Resp 16; Pulse Ox 100% on R/A; hb 10:48 BP 126 / 87; Pulse 55; Resp 16; Pulse Ox 99% ; hb 11:00 BP 128 / 79; Pulse 59; Resp 16; Pulse Ox 100% ; ph 07:25 Pain Scale: Adult ll1 08:30 Pain Scale: Adult hb ED Course: 07:14 Patient arrived in ED. mg5 07:14 Tamir Bender MD is Attending Physician. ec2 07:17 Triage completed. ll1 07:17 Arm band placed on Patient placed in an exam room, on a stretcher. ll1 07:30 Patient has correct armband on for positive identification. Provided Education on: hb medications, tests, result times. 07:40 Inserted saline lock: 20 gauge in right antecubital area, using aseptic technique. hb Blood collected. 07:44 Susie Bridges, RN is Primary Nurse. hb 07:44 CBC with Diff Sent. hb 07:44 CMP Sent. hb 07:44 Lipase Sent. hb 07:49 CT Abd/Pelvis - Without Contrast In Process Unspecified. EDMS 08:03 Scrotum Testicles US In Process Unspecified. EDMS 12:02 Emmanuel Koehler MD is Referral Physician. ec2 12:07 No provider procedures requiring assistance completed. IV discontinued, intact, ph bleeding controlled, No redness/swelling at site. Pressure dressing applied. Administered Medications: 07:40 Drug: morphine IVP or IV 4 mg IVP once over 4 mins Route: IVP; Infused Over: 4 mins; hb Site: right antecubital; 08:30 Follow up: Response: No adverse reaction hb 07:40 Drug: NS 0.9% IV 1000 ml IV at 1 bolus Per protocol; 1000 mL bolus Route: IV; Rate: 1 hb bolus; Site: right antecubital; 08:48 Follow up: Response: No adverse reaction; IV Status: Completed infusion; IV Intake: hb 1000ml 07:40 Drug: Ondansetron IVP 4 mg IVP once; over 2 minutes Route: IVP; Site: right antecubital;hb 08:30 Follow up: Response: No adverse reaction hb 07:40 Drug: Ketorolac IVP 15 mg IVP once Route: IVP; Site: right antecubital; hb 08:47 Follow up: Response: No adverse reaction hb 08:38 Drug: morphine IVP or IV 8 mg IVP once over 4 mins Route: IVP; Infused Over: 4 mins; hb Site: right antecubital; 09:54 Follow up: Response: No adverse reaction hb 09:54 Drug: NS 0.9% IV 1000 ml IV at 1 bolus Per protocol; 1000 mL bolus Route: IV; Rate: 1 hb bolus; Site: left antecubital; 12:08 Follow up: Response: No adverse reaction; IV Status: Completed infusion; IV Intake: ph 1000ml Medication: 08:49 VIS not applicable for this client. hb Intake: 08:48 IV: 1000ml; Total: 1000ml. hb 12:08 IV: 1000ml; Total: 2000ml. ph Outcome: 12:02 Discharge ordered by . ec2 12:07 Discharged to home ambulatory, ph 12:07 Condition: good 12:07 Discharge instructions given to patient, Instructed on discharge instructions, follow up and referral plans. medication usage, Demonstrated understanding of instructions, follow-up care, medications, Prescriptions given X 1, 12:15 Patient left the ED. Signatures: Dispatcher [employer] Mojgan Song RN RN Susie Bridges RN RN Katie Hollins RN RN ll1 Rebeka Tracy mg5 Tamir Bender MD MD ec2 Corrections: (The following items were deleted from the chart) 07:58 07:25 Chief complaint: Patient states: Severe L sided scrotal area pain started while ll1 at work around 3 AM. N/V with sever pain and sweating ll1
--- NOTE | 2023-02-16 12:02 | EDPHYS ---
Physician Documentation [facility] Name: Jasper Novak Age: 27 yrs Sex: Male : 1995 Arrival Date: 02/16/2023 Time: 07:10 Bed 7 Private MD: ED Physician Tamir Bender HPI: 02/16 07:26 This 27 yrs old Male presents to ER via Ambulatory with complaints of ec2 Testicular Pain, Groin Pain. 07:26 Patient arrives today due to concern for abdominal pain and scrotal pain. States that ec2 the pain started suddenly this morning at approximately 3 AM, states that the pain is causing him nausea and vomiting. Patient reports no significant medical problems. Reports that the pain is worse in the lower abdomen and radiates into the scrotum. Patient reports associated nausea and vomiting.. Historical: - Allergies: 07:24 No Known Allergies; ll1 - PMHx: 07:24 None; ll1 - PSHx: 07:17 Elbow; ll1 - Immunization history:: Adult Immunizations up to date. - Social history:: Smoking status: Patient denies any tobacco usage or history of. ROS: 07:26 Constitutional: as per hpi ec2 Exam: 07:26 Constitutional: GEN: NAD Head: atraumatic Eyes: EOMI Ears: External ears are ec2 normal. CV: regular rate LUNGS: no respiratory distress ABD: non-distended, minimally tender in lower abdomen. : Testicles with intact cremasteric reflex bilaterally, no erythema, no swelling, no tenderness to the testicles SKIN: no evidence of rashes MSK: no evidence of trauma NEURO: moves all extremities equally Vital Signs: 07:25 BP 145 / 75; Pulse 62; Resp 16; Temp 97.8; Pulse Ox 100% ; Pain 10/10; ll1 08:30 BP 115 / 69; Pulse 62; Resp 15; Pulse Ox 99% on R/A; Pain 9/10; hb 09:54 BP 114 / 70; Pulse 85; Resp 16; Pulse Ox 100% on R/A; hb 10:48 BP 126 / 87; Pulse 55; Resp 16; Pulse Ox 99% ; hb 11:00 BP 128 / 79; Pulse 59; Resp 16; Pulse Ox 100% ; ph 07:25 Pain Scale: Adult ll1 08:30 Pain Scale: Adult hb MDM: 07:14 Patient medically screened. ec2 07:26 ED course: Patient arrives today for evaluation of abdominal pain and scrotal pain. ec2 Examination remarkable for well-appearing scrotum with testicles that are soft and nontender with intact reflexes and minimally tender in the lower abdomen suprapubic region. Will obtain lab work, ultrasound and CT abdomen pelvis. Currently considering epididymitis, lower suspicion for torsion, considering nephrolithiasis as well.. 07:58 ED course: CT of the pelvis independently reviewed and interpreted me, shows left-sided ec2 ureteral stone, this is more likely the cause of the patient's presentation and given the patient's benign scrotal examination. . 08:31 ED course: Metabolic profile is reassuring, lipase within normal ranges, CBC with ec2 leukocytosis to 15.7. CT abdomen pelvis shows a 3 mm distal left ureteral stone with left-sided hydronephrosis. Pending urine studies.. 10:27 ED course: Incidental findings noted on scrotal ultrasound, relayed to patient. . ec2 12:00 Data reviewed: vital signs. ec2 12:00 ED course: Urine is noninfectious appearing, does have blood present. Consistent with ec2 the patient's ureteral stones. Will discharge home with prescription for medications and have him follow-up with urology. Return precautions given. 02/16 07:26 Order name: CBC with Diff; Complete Time: 08:01 ec2 02/16 07:26 Order name: CMP; Complete Time: 08:30 ec2 02/16 07:26 Order name: Lipase; Complete Time: 08:30 ec2 02/16 07:58 Order name: UAM; Complete Time: 12:00 ec2 02/16 07:26 Order name: CT Abd/Pelvis - Without Contrast; Complete Time: 08:30 ec2 02/16 07:26 Order name: Scrotum Testicles US; Complete Time: 10:26 ec2 02/16 07:26 Order name: IV Saline Lock; Complete Time: 07:44 ec2 02/16 07:26 Order name: Labs collected and sent; Complete Time: 07:44 ec2 Administered Medications: 07:40 Drug: morphine IVP or IV 4 mg IVP once over 4 mins Route: IVP; Infused Over: 4 mins; hb Site: right antecubital; 08:30 Follow up: Response: No adverse reaction hb 07:40 Drug: NS 0.9% IV 1000 ml IV at 1 bolus Per protocol; 1000 mL bolus Route: IV; Rate: 1 hb bolus; Site: right antecubital; 08:48 Follow up: Response: No adverse reaction; IV Status: Completed infusion; IV Intake: hb 1000ml 07:40 Drug: Ondansetron IVP 4 mg IVP once; over 2 minutes Route: IVP; Site: right antecubital;hb 08:30 Follow up: Response: No adverse reaction hb 07:40 Drug: Ketorolac IVP 15 mg IVP once Route: IVP; Site: right antecubital; hb 08:47 Follow up: Response: No adverse reaction hb 08:38 Drug: morphine IVP or IV 8 mg IVP once over 4 mins Route: IVP; Infused Over: 4 mins; hb Site: right antecubital; 09:54 Follow up: Response: No adverse reaction hb 09:54 Drug: NS 0.9% IV 1000 ml IV at 1 bolus Per protocol; 1000 mL bolus Route: IV; Rate: 1 hb bolus; Site: left antecubital; 12:08 Follow up: Response: No adverse reaction; IV Status: Completed infusion; IV Intake: ph 1000ml Disposition Summary: 02/16/23 12:02 Discharge Ordered Notes: Location: Home ec2 Condition: Stable ec2 Diagnosis - Ureteral Stone ec2 Followup: ec2 - With: Emmanuel Koehler MD - When: - Reason: Continuance of care Discharge Instructions: - Discharge Summary Sheet hb - Kidney Stones, [id number] ec2 Forms: - Work release form hb - Medication Reconciliation Form ec2 - Thank You Letter ec2 - Antibiotic Education ec2 - Prescription Opioid Use ec2 - Patient Portal Instructions ec2 - Leadership Thank You Letter ec2 Prescriptions: - acetaminophen-codeine 300-15 mg Oral tablet - take 1 tablet ORAL route 3 times per day as needed for pain; 15 tablet; ec2 Refills: 0, Product Selection Permitted - tamsulosin 0.4 mg Oral capsule - take 1 capsule ORAL route every morning; 14 capsule; Refills: 0, Product ec2 Selection Permitted Signatures: Dispatcher [employer] Susie Rodriguez RN RN Katie Hollins RN RN [facility] Tamir Bender MD MD ec2 Mojgan Cedillo RN ph Corrections: (The following items were deleted from the chart) 07:28 07:26 ED course: Patient arrives today for evaluation of abdominal pain and scrotal ec2 pain. Examination remarkable for well-appearing scrotum with. ec2 09:04 07:58 ED course: CT of the pelvis independently reviewed and interpreted me, shows ec2 left-sided ureteral stone, this is more likely the cause of the patient's presentation and given the patient's benign scrotal examination. We will cancel testicular ultrasound.. ec2
[2023-02-16 12:33] VITALS: TEMP 97.8
[2023-02-16 12:42] VITALS: BP 128/79; O2SAT 100
== END 2023-02-16 12:15 | disposition home or self-care (01) ==
LOC: ER 07:10
DX: N20.1 Calculus of ureter (principal)
CPT/HCPCS: 36415; 74176; 76870; 80053; 81001; 83690; 85025; 96361; 96374; 96375; 99284; J2405; J7030